=== PATIENT | female | born 1985 | race American Indian/Alaskan Native ===

== ENCOUNTER 2016-12-27 08:50 | Outpatient (CLI) | payer MEDICAID ==
[2016-12-27] MEDS ORDERED: LACTATED RINGERS 500 ML IV ONE (09:04)
[2016-12-27 09:47] LABS: Mucus,Urine 2+ /HPF
[2016-12-27 09:58] LABS: Bilirubin,Urine NEG (Negative); Blood,Urine NEG (Negative); Ketones,Urine NEG (Negative); Leukocyte Esterase,Urine NEG (Negative); Nitrite,Urine NEG (Negative); Protein,Urine <15 mg/dL mg/dL (Negative); Urobilinogen,Urine < 2.0 mg/dL (<2.0)
[2016-12-27 10:17] LABS: Basophils % (Auto) 0.6 % (0.0-1.8); Eosinophils % (Auto) 0.4 % (0.0-4.3); Hemoglobin 11.7 gm/dl (10.1-14.3); Mean Corpuscular HGB Conc 32 % (30-34); Mean Corpuscular Volume 76 fl (79-97); Platelet Count 178 K/mm3 (140-440); Red Blood Count 4.77 M/mm3 (3.65-5.03); Red Cell Distribution Width 14.8 % (13.2-15.2); White Blood Count 8.3 K/mm3 (4.5-11.0)
[2016-12-27 10:23] LABS: Mean Corpuscular Hemoglobin 25 pg (28-32)
[2016-12-27 10:27] LABS: Urine Drugs of Abuse Note Disclamer
[2016-12-27 10:38] LABS: Alanine Aminotransferase 15 units/L (7-56); Albumin 3.4 g/dL (3.9-5); Albumin/Globulin Ratio 0.8 %; Alkaline Phosphatase 94 units/L (35-129); Anion Gap 20 mmol/L; Bilirubin,Total 0.2 mg/dL (0.1-1.2); Blood Urea Nitrogen 9 mg/dL (7-17); Calcium 9.1 mg/dL (8.4-10.2); Carbon Dioxide 17 mmol/L (22-30); Glucose 91 mg/dL (65-100); Potassium 4.3 mmol/L (3.6-5.0); Sodium 134 mmol/L (137-145); Total Protein 7.5 g/dL (6.3-8.2)
[2016-12-27 10:58] VITALS: BP 91/53
== END 2016-12-27 11:23 | disposition home or self-care (01) ==
LOC: TRG 08:50
PROVIDERS: ATTEND Obstetrics & Gynecology
DX: O77.9 Labor and delivery complicated by fetal stress, unspecified (principal); O47.9 False labor, unspecified; Z3A.00 Weeks of gestation of pregnancy not specified
CPT/HCPCS: 36415; 59025; 80053; 80307; 81001; 85025; 93005; 93010; J7120

== ENCOUNTER 2017-03-03 10:48 | Inpatient (IN) | payer MEDICAID ==
[2017-03-03] MEDS ORDERED: LACTATED RINGERS 500 ML IV ONE (11:28)
[2017-03-03] MEDS ORDERED: ePHEDrine SULFATE IV PRN (12:13)
[2017-03-03] MEDS ORDERED: XYLOCAINE 2% INFILTRATI ONE ×2 (12:13→17:10)
[2017-03-03] MEDS ORDERED: BRETHINE SUB-Q PRN (12:13)
[2017-03-03] MEDS ORDERED: SUBLIMAZE IV PRN (12:13)
[2017-03-03] MEDS ORDERED: MINERAL OIL PO PRN (12:13)
[2017-03-03] MEDS ORDERED: BRETHINE IVP PRN (12:13)
[2017-03-03] MEDS ORDERED: PITOCin/NS 30 UNIT/500ML 30 UNITS/500 ML BAG IV SCH ×2 (13:00)
[2017-03-03] MEDS ORDERED: LACTATED RINGERS 1,000 ML IV SCH (13:00)
[2017-03-03] MEDS ORDERED: PITOCin/NS 20 UNIT/1000ML DRIP 20 UNITS/1,000 ML BAG IV SCH (13:00)
[2017-03-03 13:20] LABS: Hemoglobin 10.3 gm/dl (10.1-14.3); Mean Corpuscular HGB Conc 31 % (30-34); Platelet Count 147 K/mm3 (140-440); Red Blood Count 4.81 M/mm3 (3.65-5.03); Red Cell Distribution Width 16.2 % (13.2-15.2); White Blood Count 7.1 K/mm3 (4.5-11.0)
[2017-03-03 13:21] LABS: Mean Corpuscular Hemoglobin 21 pg (28-32); Mean Corpuscular Volume 69 fl (79-97)
--- NOTE | 2017-03-03 13:50 | History and Physical Report ---
History of Present Illness Date of examination: 03/03/17 Date of admission: 03/03/17 13:40 Chief complaint: My water broke this morning History of present illness: 31 Y/O G1 PO, 36.5 weeks presents to labor and delivery with C/O ruptured membranes since about 8 am. care at [facility] since 7 weeks gestation. Transferred out and back into care during the . GBS Neg, HSV 2 pos. Past History Past Medical History: other (mild tricuspid valve insufficiency) Past Surgical History: no surgical history HOSPICE REGISTERED NURSE History: herpes Family/Genetic History: none Social history: no significant social history - Obstetrical History Expected Date of Delivery: 03/26/17 Actual Gestation: 36 Week(s) 5 Day(s) : 1 Para: 0 Hx # Term Pregnancies: 0 Number of Pregnancies: 0 Spontaneous Abortions: 0 Induced : 0 Number of Living Children: 0 Medications and Allergies Allergies Allergy/AdvReac Type Severity Reaction Status Date / Time No Known Allergies Allergy Verified 08/12/16 12:08 Active Meds: Active Medications Fentanyl (Sublimaze) 100 mcg IV Q2H PRN PRN Reason: Labor Pain Lactated Ringer's (Lactated Ringers) 1,000 mls @ 125 mls/hr IV DIRECT AGNES Oxytocin/Sodium Chloride (Pitocin/Ns 20 Unit/1000ml Drip) 20 units in 1,000 mls @ 125 mls/hr IV DIRECT AGNES Oxytocin/Sodium Chloride (Pitocin/Ns 30 Unit/500ml) 30 units in 500 mls @ 4 mls /hr IV TITR AGNES PRN Reason: Protocol Oxytocin/Sodium Chloride (Pitocin/Ns 30 Unit/500ml) 30 units in 500 mls @ 1 mls /hr IV TITR AGNES; 1 MILLIUNITS/MIN PRN Reason: Protocol Mineral Oil (Mineral Oil) 30 ml PO QHS PRN PRN Reason: Constipation Review of Systems All systems: negative - Vital Signs Vital signs: Vital Signs Pulse BP 116 H 106/77 03/03/17 11:27 03/03/17 11:27 Temp Pulse Resp BP Pulse Ox 242 H 106/77 82 L 03/03/17 11:31 03/03/17 11:27 03/03/17 11:31 - Physical Exam Breasts: Positive: deferred Cardiovascular: Regular rate Lungs: Positive: Clear to auscultation Abdomen: Positive: soft Vulva: both: normal Vagina: Positive: normal moisture Uterus: Positive: enlarged Adnexa: both: normal Anus/Rectum: Positive: normal perianal skin Extremities: Positive: normal Deep Tendon Reflex Grade: Normal +2 - Obstetrical FHR: category 1 Uterine Contraction Monitor Mode: External Cervical Dilatation: 1 Cervical Effacement Percentage: 70 station: -1 Results Result Diagrams: 03/03/17 13:00 Abnormal lab results 03/03/17 Range/Units 13:00 MCV 69 L (79-97) fl MCH 21 L (28-32) pg RDW 16.2 H (13.2-15.2) % All other labs normal. Assessment and Plan O: VE /-1, srom @ 0800 A: Srom @ 36.4 weeks P: Pitocin induction
[2017-03-03] MEDS ORDERED: ePHEDrine SULFATE ONE (15:30)
[2017-03-03] MEDS ORDERED: TUCKS PAD TP PRN (18:33)
[2017-03-03] MEDS ORDERED: NORCO 5/325 PO PRN (18:33)
[2017-03-03] MEDS ORDERED: DERMOPLAST TP PRN ×2 (18:33→20:02)
[2017-03-03] MEDS ORDERED: LANSINOH TP PRN (18:33)
[2017-03-03] MEDS ORDERED: DULCOLAX PR PRN ×2 (18:33→20:02)
[2017-03-03] MEDS ORDERED: TYLENOL PO PRN (18:33)
[2017-03-03] MEDS ORDERED: BENADRYL PO PRN (18:33)
[2017-03-03] MEDS ORDERED: PHENERGAN PO PRN (18:33)
[2017-03-03] MEDS ORDERED: ZOFRAN IV PRN ×2 (18:33→20:02)
--- NOTE | 2017-03-03 18:42 | Procedure Note ---
OB Delivery Note - Vaginal Delivery presentation: vertex Delivery position: OA Delivery induction: none Delivery augmentation: pitocin Delivery monitor: external FHT, external uterine Route of delivery: Indicators for instrumentation: nonreassuring FHR tracing Delivery placenta: spontaneous Delivery cord: 3 umbilical vessels Episiotomy: midline Delivery laceration: 2nd degree Delivery repair: vicryl Anesthesia: epidural Delivery comments: of a viable male 6#-7oz on 03/03/2017 @ 1709 over 2 degree midline laceration. Loose nuchal cord x1, 8/9. Laceration repaired with 2-0 vicryl. FF @u -2, lochia small. Mother and baby doing well. - Infant A at 1 minute: 8 at 5 minutes: 9 Gender: Male (6#7)
[2017-03-03] MEDS ORDERED: SODIUM CHLORIDE FLUSH SYRINGE 10 ML IV NR (19:00)
[2017-03-03] MEDS: MOTRIN PO SCH (20:00)
[2017-03-04] MEDS: MOTRIN PO SCH ×3 (02:20→15:05)
[2017-03-04 07:06] LABS: Hematocrit 29.2 % (30.3-42.9); Hemoglobin 9.1 gm/dl (10.1-14.3)
--- NOTE | 2017-03-04 10:56 | Progress Note ---
Assessment and Plan PPD# 1 s/p -Stable P: -Discharged home -Follow up in clinic in 6 weeks - Patient Problems (1) (normal spontaneous vaginal delivery) Current Visit: Yes Status: Acute Subjective - Subjective Date of service: 03/04/17 Principal diagnosis: PPD# 1 Interval history: Patient seen and examined, stable doing well no issues Patient reports: appetite normal, voiding normally, pain well controlled, flatus , ambulating normally, no dizzy ambulation, no nauseated [place]: doing well Objective - Vital Signs Latest vital signs: Vital Signs Temp Pulse Pulse Resp BP BP Pulse Ox 03/04/17 09:49 97.8 F 82 16 108/68 03/04/17 05:00 98.1 F 76 20 106/66 03/04/17 01:50 98.1 F 78 20 113/65 03/03/17 19:20 98.5 F 80 20 129/77 03/03/17 18:30 98 H 100 03/03/17 18:25 92 H 99 03/03/17 18:23 91 H 120/70 83 L 03/03/17 18:20 94 H 94 03/03/17 18:17 73 81 L 03/03/17 18:15 89 100 03/03/17 18:10 89 100 03/03/17 18:08 89 124/73 03/03/17 18:06 64 92 03/03/17 18:05 94 H 100 03/03/17 18:00 91 H 100 03/03/17 17:55 94 H 100 03/03/17 17:54 95 H 116/69 03/03/17 17:50 93 H 100 03/03/17 17:45 92 H 100 03/03/17 17:40 92 H 100 03/03/17 17:39 105 H 146/67 03/03/17 17:35 100 H 100 03/03/17 17:30 104 H 106/76 100 03/03/17 17:22 104 H 100 03/03/17 17:17 109 H 98 03/03/17 17:12 113 H 98 03/03/17 15:21 18 03/03/17 14:33 99 F 16 03/03/17 14:32 90 110/68 03/03/17 14:22 98 H 99 03/03/17 14:17 94 H 100 03/03/17 14:12 91 H 100 03/03/17 14:07 93 H 99 03/03/17 14:02 108 H 99 03/03/17 13:57 96 H 99 03/03/17 13:52 98 H 100 03/03/17 11:31 242 H 82 L 03/03/17 11:27 116 H 106/77 Intake and Output 03/03/17 03/04/17 03/04/17 22:59 06:59 14:59 Intake Total 2245 250 Output Total 400 300 Balance 1845 -50 Intake: IV 1925 250 Lactated Ringers 500 ml @ 1000 999 mls/hr IV BOLUS ONE Rx#:[id number] PITOCin/NS 20 UNIT/1000ML 425 250 DRIP 20 units In 1,000 ml @ 125 mls/hr IV DIRECT AGNES Rx#:[id number] PITOCin/NS 30 UNIT/500ML 500 30 units In 500 ml @ 4 mls/hr IV TITR AGNES Rx#: [id number] Oral 80 Intake, Free Water 240 Output: Urine 400 300 Void 400 300 Other: Total, Intake Amount 80 Total, Output Amount 400 300 # Voids Void 1 Estimated Blood Loss 200 - Exam Abdomen: Present: normal appearance, soft. Absent: distention, tenderness, guarding, rigidity Uterus: Present: fundal height below umbilicus. Absent: tenderness Extremities: Present: normal - Labs Labs: Abnormal lab results 03/03/17 03/04/17 Range/Units 13:00 06:45 Hgb 9.1 L (10.1-14.3) gm/dl Hct 29.2 L (30.3-42.9) % MCV 69 L (79-97) fl MCH 21 L (28-32) pg RDW 16.2 H (13.2-15.2) %
--- NOTE | 2017-03-04 10:59 | Discharge Summary ---
Providers - Providers Date of Admission: 03/03/17 13:40 Date of discharge: 03/04/17 Attending physician: JENNIFER VOGEL MD Primary care physician: JENNIFER VOGEL MD Hospitalization Reason for admission: active labor, IUP - , rupture of membranes Delivery: Episiotomy: none Laceration: 2nd degree Incision: dry, intact complications: none Discharge diagnosis: delivery baby: male Hospital course: Uncomplicated course Condition at discharge: Good Disposition: DISCHARGED TO HOME OR SELFCARE - Discharge Diagnoses (1) (normal spontaneous vaginal delivery) Status: Acute Plan - Provider Discharge Summary Activity: no sex for 6 weeks, no heavy lifting 4 weeks, no strenuous exercise Diet: routine Instructions: routine Additional instructions: [] Smoking cessation referral if applicable(refer to patient education folder for contact #) [] Refer to [facility]'s [facility] Center Booklet Call your doctor immediately for: * Fever > 100.5 * Heavy vaginal bleeding ( >1 pad per hour) * Severe persistent headache * Shortness of breath * Reddened, hot, painful area to leg or breast * Drainage or odor from incision. * Keep incision clean and dry at all times and follow doctor's instructions regarding bathing/showering - Follow up plan Follow up: JENNIFER ROSALES MD [Primary Care Provider] - 6 Weeks
[2017-03-04 16:42] VITALS: BP 98/62
== END 2017-03-04 18:20 | disposition home or self-care (01) | DRG 775 ==
LOC: TRG 10:48 → LD 13:35 → TRG 13:40 → OB 19:16
PROVIDERS: ADMIT Obstetrics & Gynecology; ATTEND Obstetrics & Gynecology
PROC: 10E0XZZ Delivery of Products of Conception, External Approach (ICD-10-PCS; principal; 2017-03-03)
PROC: 0KQM0ZZ Repair Perineum Muscle, Open Approach (ICD-10-PCS; 2017-03-03)
PROC: 3E0S3CZ (ICD-10-PCS; 2017-03-03)
PROC: 00HU33Z Insertion of Infusion Device into Spinal Canal, Percutaneous Approach (ICD-10-PCS; 2017-03-03)
PROC: 0W8NXZZ Division of Female Perineum, External Approach (ICD-10-PCS; 2017-03-03)
DX: O60.14X0 Preterm labor third trimester with preterm delivery third trimester, not applicable or unspecified (principal); O76 Abnormality in fetal heart rate and rhythm complicating labor and delivery; O69.81X0 Labor and delivery complicated by cord around neck, without compression, not applicable or unspecified; O70.1 Second degree perineal laceration during delivery; Z3A.36 36 weeks gestation of pregnancy; Z37.0 Single live birth
CPT/HCPCS: 36415; 85014; 85018; 85027; 86850; 86900; 86901; A6250; J2590; J3010; J7120

== ENCOUNTER 2021-08-11 09:24 | Emergency (ER) | payer MEDICAID ==
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
[2021-08-11 11:24] VITALS: BP 131/96
== END 2021-08-11 11:21 | disposition home or self-care (01) ==
LOC: ED 09:24
DX: M79.651 Pain in right thigh (principal); G89.4 Chronic pain syndrome
CPT/HCPCS: 99282

== ENCOUNTER 2022-04-25 09:19 | Emergency (ER) | payer MEDICAID ==
--- NOTE | 2022-04-25 13:44 | Emergency Department Report ---
- General Chief complaint: Skin/Abscess/Foreign Body Stated complaint: SPIDER BITE Time Seen by Provider: 04/25/22 13:19 Source: patient Mode of arrival: Ambulatory Limitations: No Limitations - History of Present Illness Initial comments: This is a 36-year-old female nontoxic, well nourished in appearance, no acute signs of distress presents to the ED with c/o of redness and pain to left proximal thigh area x several days. Patient denies any pus or drainage. Patient denies any fever, chills, nausea, vomiting, chest pain, shortness of breath, headache or stiff neck. Patient denies any allergies or significant past medical history. -: days(s) Location: [facility] Severity: mild Severity scale (0 -10): 3 Quality: aching Consistency: constant Improves with: none Worsens with: none Associated symptoms: denies other symptoms Treatments Prior to Arrival: none - Related Data Previous Rx's Medication Instructions Recorded Last Taken Type Ibuprofen [Motrin 600 MG tab] 600 mg PO Q8H PRN #30 tablet 03/04/17 Unknown Rx Multivitamin with Iron 1 each PO DAILY #30 tablet 03/04/17 Unknown Rx [Multivitamins with Iron] traMADoL [Ultram 50 MG tab] 50 mg PO Q6HR PRN #20 tablet 03/04/17 Unknown Rx Lidocaine [Lidoderm] 1 each TP DAILY #30 adh..patch 08/11/21 Unknown Rx Sulfamethoxazole/Trimethoprim 1 each PO BID #14 tab 04/25/22 Unknown Rx [Bactrim DS TAB] Allergies Allergy/AdvReac Type Severity Reaction Status Date / Time No Known Allergies Allergy Verified 08/12/16 12:08 Abscess Boil HPI - HPI Chief Complaint: Skin/Abscess/Foreign Body Stated Complaint: SPIDER BITE Time Seen by Provider: 04/25/22 13:19 Home Medications: Previous Rx's Medication Instructions Recorded Last Taken Type Ibuprofen [Motrin 600 MG tab] 600 mg PO Q8H PRN #30 tablet 03/04/17 Unknown Rx Multivitamin with Iron 1 each PO DAILY #30 tablet 03/04/17 Unknown Rx [Multivitamins with Iron] traMADoL [Ultram 50 MG tab] 50 mg PO Q6HR PRN #20 tablet 03/04/17 Unknown Rx Lidocaine [Lidoderm] 1 each TP DAILY #30 adh..patch 08/11/21 Unknown Rx Sulfamethoxazole/Trimethoprim 1 each PO BID #14 tab 04/25/22 Unknown Rx [Bactrim DS TAB] Allergies/Adverse Reactions: Allergies Allergy/AdvReac Type Severity Reaction Status Date / Time No Known Allergies Allergy Verified 08/12/16 12:08 ED Review of Systems ROS: Stated complaint: SPIDER BITE Other details as noted in HPI Comment: All other systems reviewed and negative Constitutional: denies: chills, fever Eyes: denies: eye pain, eye discharge, vision change ENT: denies: ear pain, throat pain Respiratory: denies: cough, shortness of breath, wheezing Cardiovascular: denies: chest pain, palpitations Endocrine: no symptoms reported Gastrointestinal: denies: abdominal pain, nausea, diarrhea Genitourinary: denies: urgency, dysuria, discharge Musculoskeletal: denies: back pain, joint swelling, arthralgia Skin: denies: rash, lesions Neurological: denies: headache, weakness, paresthesias Psychiatric: denies: anxiety, depression Hematological/Lymphatic: denies: easy bleeding, easy bruising ED Past Medical Hx - Past Medical History Hx Hypertension: No Hx Congestive Heart Failure: No Hx Diabetes: No Hx Deep Vein Thrombosis: No Hx Renal Disease: No Hx Sickle Cell Disease: No Hx Seizures: No Hx Asthma: No Hx COPD: No Hx HIV: No Additional medical history: Chronic leg pain - Surgical History Past Surgical History?: No - Social History Smoking Status: Current Every Day Smoker - Medications Home Medications: Home Medications Medication Instructions Recorded Confirmed Last Taken Type Ibuprofen [Motrin 600 MG tab] 600 mg PO Q8H PRN #30 tablet 03/04/17 Unknown Rx Multivitamin with Iron 1 each PO DAILY #30 tablet 03/04/17 Unknown Rx [Multivitamins with Iron] traMADoL [Ultram 50 MG tab] 50 mg PO Q6HR PRN #20 tablet 03/04/17 Unknown Rx Lidocaine [Lidoderm] 1 each TP DAILY #30 adh..patch 08/11/21 Unknown Rx Sulfamethoxazole/Trimethoprim 1 each PO BID #14 tab 04/25/22 Unknown Rx [Bactrim DS TAB] ED Physical Exam - General Limitations: No Limitations General appearance: alert, in no apparent distress - Head Head exam: Present: atraumatic, normocephalic - Eye Eye exam: Present: normal appearance - Neck Neck exam: Present: normal inspection, full ROM. Absent: lymphadenopathy - Respiratory Respiratory exam: Absent: respiratory distress - Cardiovascular Cardiovascular Exam: Present: regular rate - Extremities Exam Extremities exam: Present: normal inspection, full ROM, tenderness, normal capillary refill. Absent: joint swelling - Expanded Lower Extremity Exam Left Hip exam: Present: normal inspection, full ROM, external rotation, internal rotation, pelvic stability. Absent: tenderness, swelling, abrasion, laceration, ecchymosis, deformity, crepidus, dislocation, erythema, shortening Upper Leg exam: Present: normal inspection, full ROM, tenderness, erythema. Absent: swelling, abrasion, laceration, ecchymosis, deformity, crepidus, dislocation Knee exam: Present: normal inspection, full ROM. Absent: tenderness, swelling Lower Leg exam: Present: normal inspection, full ROM. Absent: tenderness, swelling Foot/Toe exam: Present: normal inspection, full ROM. Absent: tenderness, swelling Neuro vascular tendon exam: Present: no vascular compromise Gait: Positive: observed and normal 1 - 3 cm cellulitis present with no induration or flutance noted - Back Exam Back exam: Present: full ROM - Neurological Exam Neurological exam: Present: alert, oriented X3, normal gait - Psychiatric Psychiatric exam: Present: normal affect, normal mood - Skin Skin exam: Present: warm, dry, intact, normal color. Absent: rash ED Course Vital Signs 04/25/22 09:26 Temperature 97.9 F Pulse Rate 88 Respiratory 14 Rate Blood Pressure 99/46 O2 Sat by Pulse 98 Oximetry - Reevaluation(s) Reevaluation #1: 04/25/22 13:41 Patient is speaking in full sentences with no signs of distress noted. ED Medical Decision Making - Medical Decision Making This is a 36-year-old female that presents with cellulitis. Patient is stable and was examined by me. There is no induration, fluctuance. No signs of abscess formation. The area has been outlined with a permanent marker and patient was instructed to observe symptoms of increased redness or swelling and to return to the ER if this does occur. I will discharge patient with Bactrim. Patient was referred to Follow-up with a primary care doctor in 3-5 days or if symptoms worsen and continue return to emergency room as soon as possible. At time of discharge, the patient does not seem toxic or ill in appearance. No acute signs of distress noted. Patient agrees to discharge treatment plan of care. No further questions noted by the patient. Critical care attestation.: If time is entered above; I have spent that time in minutes in the direct care of this critically ill patient, excluding procedure time. ED Disposition Clinical Impression: Cellulitis Qualifiers: Site of cellulitis: extremity Site of cellulitis of extremity: lower extremity Laterality: left Qualified Code(s): L03.116 - Cellulitis of left lower limb Disposition: 01 HOME / SELF CARE / HOMELESS Is pt being admited?: No Does the pt Need Aspirin: No Condition: Stable Instructions: Cellulitis, Adult Additional Instructions: Follow-up with a primary care doctor in 3-5 days or if symptoms worsen and continue return to emergency room as soon as possible. Prescriptions: Sulfamethoxazole/Trimethoprim [Bactrim DS TAB] 1 each PO BID #14 tab Referrals: NORBERT COSTA MD [Referring] - 3-5 Days RUBEN RECINOS MD [Staff Physician] - 3-5 Days Time of Disposition: 13:43
[2022-04-25 16:03] VITALS: BP 128/81
== END 2022-04-25 16:01 | disposition home or self-care (01) ==
LOC: ED 09:19
DX: L03.116 Cellulitis of left lower limb (principal); G89.29 Other chronic pain; M79.606 Pain in leg, unspecified; F17.290 Nicotine dependence, other tobacco product, uncomplicated
CPT/HCPCS: 99282